=== PATIENT | male | born 1960 | race Caucasian/White ===

== ENCOUNTER 2019-10-26 13:13 | Outpatient (CLI) | payer BC, SELFPAY ==
--- NOTE | 2019-10-26 13:48 | XRR_ITS ---
PROCEDURE INFORMATION: Exam: XR Right Hip with Pelvis when Performed Exam date and time: 10/26/2019 1:50 PM Age: 59 years old Clinical indication: Right hip pain TECHNIQUE: Imaging protocol: XR Right hip with pelvis when performed. Views: 1 view. COMPARISON: CT ABDOMEN/PELVIS 09/15/2017 2:46 PM FINDINGS: Bones/joints: No fracture. No dislocation. No hip joint space narrowing. Soft tissues: There is focal soft tissue calcification adjacent to the superior margin of the right femoral greater trochanter, new since the prior comparison exam. This would be compatible with calcific tendinitis. XR/XR hip RT 2-3V wo/w pel* [id number] IMPRESSION: Calcific tendinitis.
--- NOTE | 2019-10-26 13:48 | XRR_ITS ---
PROCEDURE INFORMATION: Exam: XR Thoracic Spine, 3 Views Exam date and time: 10/26/2019 1:50 PM Age: 59 years old Clinical indication: Pain in thoracic spine. TECHNIQUE: Imaging protocol: XR of the thoracic spine, 3 views. COMPARISON: No relevant prior studies available. FINDINGS: Vertebrae: There is a slight curvature of the thoracic spine convex to the left. The thoracic vertebral bodies maintain sagittal alignment. Mild chronic appearing compression of the T7 vertebral body. No paraspinal hematoma. Soft tissues: Calcified mediastinal lymph nodes present from prior granulomatous disease. XR/XR thoracic spine 3V* [id number] IMPRESSION: No acute abnormality.
--- NOTE | 2019-10-26 13:48 | XRR_ITS ---
PROCEDURE INFORMATION: Exam: XR Lumbosacral Spine, 2 or 3 Views Exam date and time: 10/26/2019 2:08 PM Age: 59 years old Clinical indication: Low back pain TECHNIQUE: Imaging protocol: XR of the lumbosacral spine, 2 or 3 views. COMPARISON: MRI Lumbar Spine w/o [id number] 04/30/2013 8:10 AM FINDINGS: Vertebrae: The lumbar vertebral bodies maintain alignment. There is multilevel Schmorl's node formation. The facets align normally. No fracture. Slight narrowing of the L1-L2 and L2-L3 disc spaces. Soft tissues: No acute soft tissue abnormality. XR/XR lumbar spine 2-3V* [id number] IMPRESSION: No acute osseous abnormality.
== END 2019-10-26 13:14 | disposition home or self-care (01) ==
LOC: RAD 13:18
PROVIDERS: Family Provider Family Medicine; PCP Family Medicine; Referring Provider Family Medicine; Visit Provider Nurse Practitioner Family
DX: M65.28 Calcific tendinitis, other site (principal); M25.551 Pain in right hip; M54.5 Low back pain; R20.0 Anesthesia of skin
CPT/HCPCS: 72072; 72100; 73502

== ENCOUNTER 2019-11-03 14:49 | Outpatient (CLI) | payer BC, SELFPAY ==
--- NOTE | 2019-11-03 14:57 | MR_ITS ---
WS: [id number] MRI LUMBAR SPINE NONCONTRAST TECHNIQUE: Sagittal T1, T2 and STIR imaging. Axial T1 and T2 imaging. CLINICAL INFORMATION: DORSALGIA;BACK PAIN;NUMBNESS FEET;ANESTHESIA OF SKIN COMPARISON: FINDINGS: Mild lumbar curve. No acute compression. Disc bulging worse at L2-3. Small left foraminal protrusion T10-11 with mild left foraminal narrowing. Tiny annular fissure at T11-12. L1-L2: Mild annular bulging. Spinal canal and foramen are patent. Mild facet arthropathy. L2-L3: Small central disc protrusion with slight effacement of ventral thecal sac. Mild facet arthrop athy. Mild bilateral foraminal narrowing. Mild facet arthropathy. L3-L4: Mild annular bulging with slight effacement of the ventral thecal sac. Mild right greater than left foraminal narrowing. L4-L5: No significant disc bulging. Mild facet arthropathy. Spinal canal and foramen are patent. L5-S1: Mild annular bulging with slight effacement of the ventral thecal sac. Mild facet arthropathy. Spinal canal and foramen are patent. Small right renal cysts. MR/MR lumbar spine wo con* [id number] IMPRESSION: 1. Mild lumbar curve. No acute compression. No high-grade central canal stenos is. 2. Annular bulging L2-3 with slight effacement of ventral thecal sac. Small fo raminal protrusions at this level with mild left greater than right foraminal n arrowing. 3. Mild right L3-4 foraminal narrowing. 4. Small left foraminal protrusion T10-11 with mild left foraminal narrowing.
--- NOTE | 2019-11-03 14:57 | MR_ITS ---
WS: [id number] MRI THORACIC SPINE WITHOUT CONTRAST TECHNIQUE: Sagittal T1, T2 and STIR imaging. Axial T2 imaging. Noncontrast imaging obtained. CLINICAL INFORMATION: PAIN IN THORACIC SPINE;ABNORMAL FINDING MUSCULOSKELETAL SYST COMPARISON: None. FINDINGS: Mild thoracic curve convex left. Mild thoracic kyphosis. Mild chronic anterior wedging in the mid tho racic spine T6-T8 with endplate Schmorl's nodes. Incidental hemangioma T4. Slight chronic appearing c ompression of the T3 and T4 superior endplates. No acute compression fractures. Tiny central protrusions at T9-T10, T10-T11, T11-T12. Small central protrusion L1-2. Mild facet arthr opathy lower thoracic spine. Small left foraminal protrusion T10-11 with mild left foraminal narrowin g. Normal visualized thoracic aorta. T2 hyperintense lesion right hepatic lobe measuring 11 mm consisten t with a small cyst or hemangioma. MR/MR thoracic spin wo con* [id number] IMPRESSION: 1. Mild thoracic curve with mild thoracic kyphosis. No acute compression fract ures. 2. Mild chronic anterior wedging T6-T8 with endplate Schmorl's nodes. 3. Incidental hemangioma T4 vertebral body. 4. Slight chronic compression superior endplates T3 and T4. 5. Cord signal is normal. 6 6. Tiny central protrusions T9-10, T10-T11, and T11-12. Small central protrusi on L1-2. 7. Mild facet arthropathy in the lower thoracic spine. 8. Small left T10-11 proximal foraminal protrusion with mild left foraminal na rrowing.
== END 2019-11-03 14:50 | disposition home or self-care (01) ==
LOC: RADSHAW 14:54
PROVIDERS: Family Provider Family Medicine; PCP Nurse Practitioner Family; Visit Provider Nurse Practitioner Family
DX: M40.294 Other kyphosis, thoracic region (principal); M51.24 Other intervertebral disc displacement, thoracic region; M51.26 Other intervertebral disc displacement, lumbar region; M54.5 Low back pain; R20.0 Anesthesia of skin; M54.6 Pain in thoracic spine; D18.09 Hemangioma of other sites
CPT/HCPCS: 72146; 72148

== ENCOUNTER 2020-04-01 09:01 | Emergency (ER) | payer BC, SELFPAY ==
[2020-04-01 09:04] VITALS: BP 132/101; PULSE 75; RESP 16; TEMP 36.7; O2SAT 97; BMI 22.0
--- NOTE | 2020-04-01 09:24 | ED_ITS ---
HPI - Abdominal Pain General: Chief Complaint: Abdominal Pain Stated Complaint: ABD PAIN Time Seen by Provider: 04/01/20 09:06 History of Present Illness: HPI narrative: 52-year-old male presents emergency room with complaint of of left lower quadrant abdominal pain for last 3 days he denies any change in bowel movements denies any dysuria urgency or frequency no nausea vomiting diarrhea or fever is not hematochezia no hematemesis or coffee- ground emesis he is noted when he walks seems to be little bit worse he previously did had a left inguinal hernia repair is not noticed any bulging in the area of that hernia repair. He did have a colonoscopy about 10 years ago he was told it was normal at that time. MD elicited complaint: abdominal pain Pertinent past history: other (Previous left inguinal hernia repair) Onset (ago): day(s) (3) Pain Consistency: constant Location: LLQ Severity: moderate Quality: cramping Radiation: other Migration to: no migration and suprapubic Exacerbating factors: eating and movement Relieving factors: rest Associated Symptoms: Reports anorexia, GI cramping and poor appetite; Denies chills, dysuria and fever(s) Review of Systems Const: Denies: fever(s), chills, body aches, change in appetite, fatigue or malaise ENMT: Denies: throat pain, ear or mastoid pain, nasal discharge or nasal congestion Card: Denies: chest pain, edema, dyspnea on exertion or orthopnea Resp: Denies: dyspnea, productive cough or non-productive cough GI: Reports: GI cramping : Denies: flank pain, dysuria, urinary frequency or urinary urgency Skin/Breast: Denies: rash or pruritus PFSH ED PFSH: Medical History (Updated 04/01/20 @ 11:02 by Esau Frausto DO) Inguinal hernia Liver laceration No significant past medical history Normal colonoscopy Per patient 10 years ago reported to him is normal Surgical History (Updated 04/01/20 @ 09:29 by Esau Frausto DO) H/O exploratory laparotomy Social History (Updated 04/01/20 @ 09:30 by Esau Frausto DO) Smoking and tobacco status: current every day smoker cigarettes Packs smoked per day: 0.5 Years cigarettes smoked: 25 Physical Exam Const: COMMON NORMALS: no acute distress GENERAL APPEARANCE: cooperative and comfortable ORIENTATION/CONSCIOUSNESS: Yes awake, Yes oriented to person, Yes oriented to place and Yes oriented to time HENMT: COMMON NORMALS: normocephalic, atraumatic, hearing grossly normal bilaterally, external ears normal, EAC's normal, TM's normal bilaterally, Normal nasal mucous membranes and turbinates present, moist oral mucous membranes and oropharynx normal HEAD & SCALP: normocephalic and atraumatic NOSE: Normal nasal mucous membranes and turbinates present EXTERNAL EAR: Yes external ears normal EXTERNAL AUDITORY CANAL: EAC's normal TYMPANIC MEMBRANE: TM's normal bilaterally Eye: COMMON NORMALS: Equal, round and reactive pupils present, EOMs intact bilaterally, conjunctivae normal and no scleral icterus CONJUNCTIVA: Yes conjunctivae normal PUPIL: Yes Equal, round and reactive pupils present Neck/C-Spine: COMMON NORMALS: full ROM, no lymphadenopathy, supple and no JVD Lymph: LYMPHATIC: no lymphadenopathy noted and no lymphedema noted Resp: COMMON NORMALS: normal respiratory effort, No retractions, No use of accessory muscles and clear to auscultation bilaterally AUSCULTATION: clear to auscultation bilaterally Cardio: COMMON NORMALS: no JVD, regular rate, regular rhythm and No murmurs present (Cardio) RATE: regular rate RHYTHM: regular rhythm GI: COMMON NORMALS: No hepatosplenomegaly present AUSCULTATION: Yes normoactive bowel sounds PALPATION: Yes Tenderness to palpation present (GI) Details: LLQ, No Guarding due to palpation present (GI) and Yes No hepatosplenomegaly present RECTAL EXAM: Yes normal sphincter tone, Yes heme negative stool and Yes prostate abnormal soft and enlarged; nontender Extremity: COMMON NORMALS: normal to inspection, capillary refill normal, no clubbing, cyanosis or edema, no calf tenderness and no pedal edema Neuro: SENSORIUM/ORIENTATION: Yes oriented to person, Yes oriented to place and Yes oriented to time Skin: COMMON NORMALS: no rashes or lesions noted GENERAL SKIN EXAM: no rashes or lesions noted Course Vital Signs: Vital signs: Vital Signs Temperature 98.0 F 04/01/20 09:04 Pulse Rate 65 04/01/20 11:07 Respiratory Rate 20 H 04/01/20 11:07 Blood Pressure 139/97 04/01/20 11:07 Pulse Oximetry 98 04/01/20 11:07 MDM - Abdominal Pain MDM Narrative: Medical decision making narrative: Reviewed CT findings and lab findings. Patient has no diverticulitis he does have a large prostate that has very difficulty with urination will restart his Flomax and follow-up with primary care on rectal exam he does not seem to prostatitis at home believe he would benefit from any oral antibiotics. He has reproducible pain with palpation in the inguinal area but there is no evidence of recurrence of hernia think this is an inguinal strain if it is worsening or change symptoms return Lab Data: Labs: Lab Results 04/01/20 04/01/20 04/01/20 Range/Units 09:30 09:30 09:30 WBC 7.0 (4.0-10.0) 10^3/ uL RBC 5.10 (4.1-5.3) 10^6/u L Hgb 14.9 (11.7-16.6) g/dL Hct 46.2 (42.0-52.0) % MCV 90.6 (80-94) fL MCH 29.2 (28.0-34.0) pg MCHC 32.3 (30.0-36.0) g/dL RDW 12.5 (12.1-15.1) % Plt Count 158 (130-400) 10^3/c mm MPV 11.1 H (7.4-10.4) fL Neut % (Auto) 81.3 % Lymph % (Auto) 11.6 % Pacific % (Auto) 5.4 % Eos % (Auto) 1.0 % Baso % (Auto) 0.4 % Neut # (Auto) 5.7 (1.8-7.7) 10^3/u L Lymph # (Auto) 0.8 (0.8-4.8) 10^3/u L Pacific # (Auto) 0.4 (0.2-0.9) 10^3/u L Eos # (Auto) 0.1 (0.0-0.8) 10^3/u L Baso # (Auto) 0.0 (0.0-0.1) 10^3/u L Nucleated RBC % (a uto) 0 % Nucleated RBCs # 0.0 /100WBC Sodium 140 (136-145) mmol/L Potassium 4.6 (3.5-5.1) mmol/L Chloride 105 (98-107) mmol/L Carbon Dioxide 27 (22-29) mmol/L Anion Gap 12.6 (5-19) BUN 18 (6-20) mg/dL Creatinine 1.1 (0.7-1.2) mg/dL GFR Calculation 68.8 L (90-130) mL/min Glucose 91 (65-115) mg/dL Calculated Osmolal ity 286 (285-295) mOsm/k g Calcium 9.2 (8.5-10.5) mg/dL Total Bilirubin 0.3 (0.15-1.2) mg/dL AST 18 (0-40) U/L ALT 17 (0-41) U/L Alkaline Phosphata se 63 (40-130) IU/L Total Protein 6.8 (6.6-8.7) g/dL Albumin 4.3 (3.5-5.2) g/dL Globulin 2.5 (1.3-4.6) g/dL Prostate Specific Ag 1.670 (0-4) ng/mL Urine Color (Yellow) Urine Appearance (CLEAR) Urine pH (5-7) Ur Specific Gravit y (1.005-1.030) Urine Protein (Negative) Urine Glucose (UA) (Normal) Urine Ketones (Negative) Urine Blood (Negative) Urine Nitrate (Negative) Urine Bilirubin (NEGATIVE) Urine Urobilinogen (Negative) mg/dL Ur Leukocyte Patti ase (Negative) 04/01/20 Range/Units 09:39 WBC (4.0-10.0) 10^3/ uL RBC (4.1-5.3) 10^6/u L Hgb (11.7-16.6) g/dL Hct (42.0-52.0) % MCV (80-94) fL MCH (28.0-34.0) pg MCHC (30.0-36.0) g/dL RDW (12.1-15.1) % Plt Count (130-400) 10^3/c mm MPV (7.4-10.4) fL Neut % (Auto) % Lymph % (Auto) % Pacific % (Auto) % Eos % (Auto) % Baso % (Auto) % Neut # (Auto) (1.8-7.7) 10^3/u L Lymph # (Auto) (0.8-4.8) 10^3/u L Pacific # (Auto) (0.2-0.9) 10^3/u L Eos # (Auto) (0.0-0.8) 10^3/u L Baso # (Auto) (0.0-0.1) 10^3/u L Nucleated RBC % (a uto) % Nucleated RBCs # /100WBC Sodium (136-145) mmol/L Potassium (3.5-5.1) mmol/L Chloride (98-107) mmol/L Carbon Dioxide (22-29) mmol/L Anion Gap (5-19) BUN (6-20) mg/dL Creatinine (0.7-1.2) mg/dL GFR Calculation (90-130) mL/min Glucose (65-115) mg/dL Calculated Osmolal ity (285-295) mOsm/k g Calcium (8.5-10.5) mg/dL Total Bilirubin (0.15-1.2) mg/dL AST (0-40) U/L ALT (0-41) U/L Alkaline Phosphata se (40-130) IU/L Total Protein (6.6-8.7) g/dL Albumin (3.5-5.2) g/dL Globulin (1.3-4.6) g/dL Prostate Specific Ag (0-4) ng/mL Urine Color Straw (Yellow) Urine Appearance Clear (CLEAR) Urine pH 7 (5-7) Ur Specific Gravit y 1.010 (1.005-1.030) Urine Protein Neg (Negative) Urine Glucose (UA) Norm (Normal) Urine Ketones Negative (Negative) Urine Blood Neg (Negative) Urine Nitrate Negative (Negative) Urine Bilirubin Neg (NEGATIVE) Urine Urobilinogen Norm (Negative) mg/dL Ur Leukocyte Patti ase Negative (Negative) Discharge Plan Discharge Patient Disposition: Home, Self-Care Clinical Impression: Inguinal muscle strain, Benign prostatic hyperplasia Condition: Stable Prescriptions: New tamsulosin 0.4 mg capsule 0.4 mg PO DAILY Qty: 30 RF: 0 No Action Tylenol 325 mg Tablet 325 mg PO QID PRN (Reason: Pain) RF: 0 Discharge Orders: Discharge Order (Routine); Ordered 04/01/20 Ordered By: Esau Frausto Referrals: Susanne Oneil FNP [Primary Care Provider] - Discharge Diet: Usual diet Discharge Activity: Increase activity as tolerated Activity Restrictions/Additional Instructions: Follow-up with your PCP regarding BPH. Discharge Date/Time: 04/01/20 11:13 Coding Level of Care Code ED [employer] for [place] Fwd Exam Comprehensive
--- NOTE | 2020-04-01 09:25 | CTR_ITS ---
PROCEDURE INFORMATION: Exam: CT Abdomen And Pelvis With Contrast Exam date and time: 04/01/2020 9:49 AM Age: 60 years old Clinical indication: Abdominal pain; Prior surgery; Surgery type: Hernia and liver; Additional info: Abd pain TECHNIQUE: Imaging protocol: Computed tomography of the abdomen and pelvis with intravenous contrast. Radiation optimization: All CT scans at this facility use at least one of these dose optimization techniques: automated exposure control; mA and/or kV adjustment per patient size (includes targeted exams where dose is matched to clinical indication); or iterative reconstruction. Contrast material: OMNI 300; Contrast volume: 95 ml; Contrast route: INTRAVENOUS (IV); COMPARISON: No relevant prior studies available. RADIATION DOSE METRICS: Total DLP (mGy-cm): 473.74 FINDINGS: Lungs: Mild dependent atelectasis is present. Liver: 1 cm low-attenuation lesion posterior segment right lobe of the liver likely hepatic cyst. Gallbladder and bile ducts: Normal. No calcified stones. No ductal dilation. Pancreas: Normal. No ductal dilation. Spleen: Normal. No splenomegaly. Adrenals: Normal. No mass. Kidneys and ureters: 1 cm simple appearing cyst right kidney. X2. No further imaging required. Stomach and bowel: Unremarkable. No obstruction. No mucosal thickening. Appendix: The appendix is not visualized. Intraperitoneal space: No free fluid within the pelvis or within the dependent portions of the peritoneum. Vasculature: Unremarkable. No abdominal aortic aneurysm. Lymph nodes: Unremarkable. No enlarged lymph nodes. Bladder: Unremarkable as visualized. Reproductive: The prostate gland is rather prominent and enlarged. Please correlate in regards to hyperplasia versus carcinoma. Bones/joints: Unremarkable. No acute fracture. Soft tissues: Unremarkable. Other findings: No acute intra-abdominal process. No inflammatory process. No obstruction. CT/CT abdomen pelvis w con* [id number] IMPRESSION: 1. No acute intra-abdominal process. No inflammatory process. No obstruction. 2. No free fluid within the pelvis or within the dependent portions of the peritoneum. 3. The prostate gland is rather prominent and enlarged. Please correlate in regards to hyperplasia versus carcinoma. COMMENTS: Consistent with the [employer]'s Incidental Findings Committee white paper (J Am Mackenzie Radiol 2018): Any incidental renal lesion less than 1.0 cm or classified as too small to characterize, or any incidental cystic renal lesion characterized as simple-appearing, is likely benign. No follow-up imaging is recommended for these lesions per consensus recommendations based on imaging criteria. Radiation Dose CTDIVOL = (mGy): DLP = 473.74 (mGy-cm)
[2020-04-01 09:39] LABS: Basophils % 0.4 %; Eosinophils # 0.1 10^3/uL (0.0-0.8); Hematocrit 46.2 % (42.0-52.0); Hemoglobin 14.9 g/dL (11.7-16.6); Lymphocytes # 0.8 10^3/uL (0.8-4.8); Lymphocytes % 11.6 %; Mean Corpuscular HGB Conc 32.3 g/dL (30.0-36.0); Mean Corpuscular Hemoglobin 29.2 pg (28.0-34.0); Mean Corpuscular Volume 90.6 fL (80-94); Mean Platelet Volume 11.1 fL (7.4-10.4); Monocytes # 0.4 10^3/uL (0.2-0.9); Monocytes % 5.4 %; Neutrophils # 5.7 10^3/uL (1.8-7.7); Neutrophils % 81.3 %; Nucleated Red Blood Cells % 0 %; Platelet Count 158 10^3/cmm (130-400); Red Cell Distribution Width 12.5 % (12.1-15.1)
[2020-04-01 09:52] LABS: Add Urine Microscopic? NO
[2020-04-01 09:57] LABS: Alanine Aminotransferase 17 U/L (0-41); Albumin Level 4.3 g/dL (3.5-5.2); Alkaline Phosphatase 63 IU/L (40-130); Anion Gap 12.6 (5-19); Aspartate Amino Transferase 18 U/L (0-40); Blood Urea Nitrogen 18 mg/dL (6-20); Calcium 9.2 mg/dL (8.5-10.5); Carbon Dioxide 27 mmol/L (22-29); Chloride 105 mmol/L (98-107); Globulin 2.5 g/dL (1.3-4.6); Glomerular Filtration Rate 68.8 mL/min (90-130); Glucose 91 mg/dL (65-115); Osmolality Calculated 286 mOsm/kg (285-295); Potassium 4.6 mmol/L (3.5-5.1); Sodium 140 mmol/L (136-145); Total Bilirubin 0.3 mg/dL (0.15-1.2); Total Protein 6.8 g/dL (6.6-8.7)
[2020-04-01 10:07] LABS: Bilirubin Urine Neg (NEGATIVE); Blood Urine Neg (Negative); Glucose Urine UA Norm (Normal); Ketones Urine Negative (Negative); Leukocyte Esterase Urine Negative (Negative); Nitrate Urine Negative (Negative); Protein Urine Neg (Negative); Urine Appearance Clear (CLEAR); Urine Color Straw (Yellow); Urobilinogen Urine Norm (Negative); pH Urine 7 (5-7)
[2020-04-01] MEDS: iohexol 300 mg/mL 100 mL Btl IV (10:08)
[2020-04-01 11:07] VITALS: BP 139/97; PULSE 65; RESP 20; O2SAT 98
== END 2020-04-01 11:13 | disposition home or self-care (01) ==
PROVIDERS: Emergency Provider Family Medicine; PCP Nurse Practitioner Family
DX: S39.013A Strain of muscle, fascia and tendon of pelvis, initial encounter (principal); N40.0 Benign prostatic hyperplasia without lower urinary tract symptoms; F17.210 Nicotine dependence, cigarettes, uncomplicated; X58.XXXA Exposure to other specified factors, initial encounter
CPT/HCPCS: 12345; 36415; 74177; 80053; 81003; 84153; 85025; 99282; 99283; Q9967